=== PATIENT | female | born 1990 | race African-American/Black ===

== ENCOUNTER 2017-03-16 10:59 | Emergency (ER) | payer MEDICAID ==
[~2017-03-16] VITALS: Ht 162.6 cm; Wt 60.0 kg
[2017-03-16] MEDS ORDERED: ALBU6.7H IH (11:07)
[2017-03-16] MEDS ORDERED: PREDNISONE 20MG TABLET PO STA (11:21)
[2017-03-16] MEDS ORDERED: IPRATROPIUM BROMIDE (0.02%) 0.5MG/2.5ML NEB HHN STA (11:21)
[2017-03-16] MEDS ORDERED: ALBUTEROL (0.083%) 2.5MG/3ML NEB HHN SCH (11:30)
[2017-03-16 13:02] VITALS: BP 121/91
== END 2017-03-16 14:07 | disposition home or self-care (01) ==
LOC: ER 11:46
DX: J45.901 Unspecified asthma with (acute) exacerbation (principal); F12.10 Cannabis abuse, uncomplicated
CPT/HCPCS: 94640; 99284; J7512; J7611

== ENCOUNTER 2018-03-30 14:23 | Emergency (ER) | payer MEDICAID, MEDICARE ==
[~2018-03-30] VITALS: Ht 162.6 cm; Wt 72.0 kg
[~2018-03-30 14:23] MED LIST: ALBU6.7H IH
[2018-03-30] MEDS ORDERED: IBUPROFEN 600MG TABLET PO ONE (15:45)
[2018-03-30 15:50] VITALS: BP 124/77
== END 2018-03-30 16:13 | disposition home or self-care (01) ==
LOC: ER 14:23
DX: S13.4XXA Sprain of ligaments of cervical spine, initial encounter (principal); J45.909 Unspecified asthma, uncomplicated; F12.10 Cannabis abuse, uncomplicated; V49.88XA Car occupant (driver) (passenger) injured in other specified transport accidents, initial encounter; Y93.89 Activity, other specified; Y92.89 Other specified places as the place of occurrence of the external cause; Y99.8 Other external cause status
CPT/HCPCS: 81025; 99283